=== PATIENT | female | born 1945 | race Caucasian/White ===

== ENCOUNTER → 2017-03-29 | Outpatient (REF) | payer MEDICARE, OTHER ==
[2017-03-29 12:34] LABS: MEAN CORPUSCULAR HEMOGLOBIN 31.7 pg (27.0-33.0); MEAN CORPUSCULAR HGB CONC 34.1 g/dl (32.0-36.5); MEAN CORPUSCULAR VOLUME 92.9 fl (80.0-96.0); RED CELL DISTRIBUTION WIDTH 13.6 % (11.5-14.5); WHITE BLOOD COUNT 5.7 K/mm3 (4.0-10.0)
[2017-03-29 12:45] LABS: ALBUMIN 3.9 GM/DL (3.2-5.2); ALKALINE PHOSPHATASE 58 U/L (45-117); ALT/SGPT 112 U/L (12-78); ANION GAP 11 MEQ/L (8-16); AST/SGOT 102 U/L (15-37); BILIRUBIN,TOTAL 0.5 MG/DL (0.2-1.0); BLOOD UREA NITROGEN 19 MG/DL (7-18); CALCIUM LEVEL 9.7 MG/DL (8.8-10.2); CARBON DIOXIDE LEVEL 26 MEQ/L (21-32); CHLORIDE LEVEL 98 MEQ/L (98-107); CHOLESTEROL LEVEL 150 MG/DL (<200); CREATININE FOR GFR 0.64 MG/DL (0.55-1.02); GLOMERULAR FILTRATION RATE > 60.0 (>39); GLUCOSE, FASTING 256 MG/DL (83-110); POTASSIUM SERUM 4.5 MEQ/L (3.5-5.1); SODIUM LEVEL 135 MEQ/L (136-145); TOTAL PROTEIN 6.9 GM/DL (6.4-8.2); TRIGLYCERIDES LEVEL 140 MG/DL (<150)
== END ==
LOC: M SFHCPLAZ 09:31
PROVIDERS: ATTEND Internal Medicine
DX: I10 Essential (primary) hypertension (principal); E11.40 Type 2 diabetes mellitus with diabetic neuropathy, unspecified; E78.00 Pure hypercholesterolemia, unspecified

== ENCOUNTER → 2017-06-06 | Outpatient (REF) | payer MEDICARE, OTHER | LOC: M SFHCPLAZ 14:45 | PROVIDERS: ATTEND Internal Medicine | DX: E11.40 Type 2 diabetes mellitus with diabetic neuropathy, unspecified (principal) | CPT/HCPCS: 83036; 99487; G0463 ==

== ENCOUNTER → 2017-08-03 | Outpatient (CLI) | payer MEDICARE, OTHER ==
--- NOTE | 2017-08-03 14:48 | REPMRS ---
Patient History The patient states she had a clinical breast exam in 08/07 Patient is nulliparous. No known family history of cancer. Digital Woman Screen Mammo: August 03, 2017 - Exam #: [id number] Bilateral CC and MLO view(s) were taken. Technologist: Mellisa Smith, Technologist Prior study comparison: August 03, 2016, digital woman screen mammo performed at [facility]. July 22, 2015, digital woman screen mammo performed at [facility]. August 05, 2014, digital woman screen mammo performed at [facility]. FINDINGS: There are scattered fibroglandular densities. There has been no change in the appearance of the mammogram from the prior studies. There is a mild amount of scattered fibroglandular density which is fairly symmetric. There is no interval development of dominant mass, architectural distortion, or clustered microcalcification suggestive of malignancy. ASSESSMENT: BI-RADS/ACR category 1 mammogram. Negative. Recommendation Routine screening mammogram in 1 year (for women over age 40). This mammogram was interpreted with the aid of an FDA-approved computer-aided dectection system. Electronically Signed By: Dl Perez MD 08/03/17 [id number]
== END ==
LOC: M WHC 12:52
PROVIDERS: ATTEND Nurse Practitioner Family
DX: Z01.411 Encounter for gynecological examination (general) (routine) with abnormal findings (principal); Z12.31 Encounter for screening mammogram for malignant neoplasm of breast; Z12.12 Encounter for screening for malignant neoplasm of rectum
CPT/HCPCS: 82270; G0101; G0202

== ENCOUNTER → 2017-08-10 | Outpatient (REF) | payer MEDICARE, OTHER ==
[2017-08-10 13:57] LABS: ALBUMIN 3.8 GM/DL (3.2-5.2); ALBUMIN/GLOBULIN RATIO 1.36 (1.00-1.93); ALKALINE PHOSPHATASE 52 U/L (45-117); ALT/SGPT 29 U/L (12-78); ANION GAP 10 MEQ/L (8-16); AST/SGOT 14 U/L (15-37); BILIRUBIN,TOTAL 0.4 MG/DL (0.2-1.0); BLOOD UREA NITROGEN 30 MG/DL (7-18); CALCIUM LEVEL 9.5 MG/DL (8.8-10.2); CARBON DIOXIDE LEVEL 27 MEQ/L (21-32); CHLORIDE LEVEL 104 MEQ/L (98-107); CHOLESTEROL LEVEL 118 MG/DL (<200); CREATININE FOR GFR 0.65 MG/DL (0.55-1.02); GLOMERULAR FILTRATION RATE > 60.0 (>39); GLUCOSE, FASTING 95 MG/DL (83-110); POTASSIUM SERUM 4.3 MEQ/L (3.5-5.1); SODIUM LEVEL 141 MEQ/L (136-145); TOTAL PROTEIN 6.6 GM/DL (6.4-8.2); TRIGLYCERIDES LEVEL 128 MG/DL (<150)
[2017-08-10 14:05] LABS: MEAN CORPUSCULAR HEMOGLOBIN 31.6 pg (27.0-33.0); MEAN CORPUSCULAR HGB CONC 34.7 g/dl (32.0-36.5); MEAN CORPUSCULAR VOLUME 91.1 fl (80.0-96.0); RED CELL DISTRIBUTION WIDTH 13.7 % (11.5-14.5); WHITE BLOOD COUNT 5.9 K/mm3 (4.0-10.0)
== END ==
LOC: M SFHCPLAZ 08:30
PROVIDERS: ATTEND Internal Medicine
DX: E78.00 Pure hypercholesterolemia, unspecified (principal); I10 Essential (primary) hypertension; E11.40 Type 2 diabetes mellitus with diabetic neuropathy, unspecified

== ENCOUNTER → 2018-03-27 | Outpatient (REF) | payer MEDICARE, OTHER ==
[2018-03-27 12:49] LABS: HEMOGLOBIN 14.3 g/dl (12.0-15.5); MEAN CORPUSCULAR HEMOGLOBIN 30.6 pg (27.0-33.0); MEAN CORPUSCULAR VOLUME 89.9 fl (80.0-96.0); PLATELET COUNT, AUTOMATED 181 10^3/uL (150-450); RED BLOOD COUNT 4.67 10^6/uL (4.00-5.40); RED CELL DISTRIBUTION WIDTH 13.8 % (11.5-14.5); WHITE BLOOD COUNT 6.2 10^3/uL (4.0-10.0)
[2018-03-27 13:11] LABS: ALBUMIN/GLOBULIN RATIO 1.18 (1.00-1.93); ALKALINE PHOSPHATASE 76 U/L (45-117); ALT/SGPT 29 U/L (12-78); ANION GAP 7 MEQ/L (8-16); AST/SGOT 18 U/L (7-37); BILIRUBIN,TOTAL 0.4 MG/DL (0.2-1.0); BLOOD UREA NITROGEN 24 MG/DL (7-18); CALCIUM LEVEL 9.6 MG/DL (8.8-10.2); CARBON DIOXIDE LEVEL 28 MEQ/L (21-32); CHLORIDE LEVEL 104 MEQ/L (98-107); CHOLESTEROL LEVEL 137 MG/DL (<200); CHOLESTEROL RISK RATIO 2.584 (<5); CREATININE FOR GFR 0.64 MG/DL (0.55-1.30); GLOMERULAR FILTRATION RATE > 60.0 (>39); GLUCOSE, FASTING 114 MG/DL (70-100); HDL CHOLESTEROL 53 MG/DL (>40); MAGNESIUM LEVEL 2.2 MG/DL (1.8-2.4); NON-HDL-C 84 MG/DL; POTASSIUM SERUM 4.4 MEQ/L (3.5-5.1); SODIUM LEVEL 139 MEQ/L (136-145); TOTAL PROTEIN 7.4 GM/DL (6.4-8.2); TRIGLYCERIDES LEVEL 120 MG/DL (<150)
[2018-03-27 13:15] LABS: CREATININE, URINE 48.1 MG/DL; MALB URINE SIEMENS 60.7 MG/L; MAU/CREAT RATIO 126.1 MCG/MG (0.0-30.0)
[2018-03-27 14:21] LABS: ESTIMATED AVERAGE GLUCOSE 120 MG/DL (60-110); HEMOGLOBIN A1c 5.8 %
== END ==
LOC: M SFHCPLAZ 08:12
DX: G62.9 Polyneuropathy, unspecified (principal); E11.40 Type 2 diabetes mellitus with diabetic neuropathy, unspecified; E78.00 Pure hypercholesterolemia, unspecified; I10 Essential (primary) hypertension
CPT/HCPCS: 83735

== ENCOUNTER 2018-07-03 12:28 | Inpatient (IN) | payer MEDICARE, OTHER ==
[2018-07-03] MEDS ORDERED: ONDANSETRON 4MG/2ML VIAL (J2405) As Ordered (12:57)
[2018-07-03] MEDS: ONDANSETRON 4MG/2ML VIAL (J2405) IV ×2 (13:00→21:42)
[2018-07-03 13:19] LABS: HEMATOCRIT 41.3 % (36.0-47.0); HEMOGLOBIN 14.3 g/dl (12.0-15.5); MEAN CORPUSCULAR HEMOGLOBIN 31.1 pg (27.0-33.0); MEAN CORPUSCULAR HGB CONC 34.6 g/dl (32.0-36.5); MEAN CORPUSCULAR VOLUME 89.8 fl (80.0-96.0); PLATELET COUNT, AUTOMATED 210 10^3/uL (150-450); RED CELL DISTRIBUTION WIDTH 14.4 % (11.5-14.5); WHITE BLOOD COUNT 9.3 10^3/uL (4.0-10.0)
[2018-07-03] MEDS: MORPHINE 4 MG/ML 1ML VIAL/SYRINGE (J2270) IV ×2 (13:37→14:33)
[2018-07-03] MEDS: NS 1,000 ML IV ×3 (13:38→21:34)
[2018-07-03 13:43] LABS: ANION GAP 11 MEQ/L (8-16); BLOOD UREA NITROGEN 25 MG/DL (7-18); CARBON DIOXIDE LEVEL 24 MEQ/L (21-32); CHLORIDE LEVEL 102 MEQ/L (98-107); CPK CREATINE PHOSPHOKINASE 37 U/L (26-192); CREATININE FOR GFR 0.61 MG/DL (0.55-1.30); GLOMERULAR FILTRATION RATE > 60.0 (>39); GLUCOSE, FASTING 227 MG/DL (70-100); POTASSIUM SERUM 4.4 MEQ/L (3.5-5.1); SODIUM LEVEL 137 MEQ/L (136-145); TROPONIN I < 0.02 NG/ML (< 0.10)
[2018-07-03] MEDS: METOCLOPRAMIDE INJ 10MG/2ML VIAL (J2765) IV (14:48)
[2018-07-03] MEDS ORDERED: MORPHINE 4 MG/ML 1ML VIAL/SYRINGE (J2270) IV (16:30)
[2018-07-03] MEDS ORDERED: GLUCOSE 4 GM CHEW TABLET PO (16:30)
[2018-07-03] MEDS ORDERED: DEXTROSE 50% 50 ML SYRINGE IV (16:30)
[2018-07-03] MEDS ORDERED: GLUCAGON FOR INJ 1 MG VIAL (J1610) SC (16:30)
[2018-07-03] MEDS: HumaLOG INSULIN (NovoLOG) PER UNIT SC ×2 (18:00→23:41)
[2018-07-03] MEDS ORDERED: PROPOFOL 200 MG/20 ML VIAL As Ordered (18:24)
[2018-07-03 18:25] LABS: BEDSIDE GLUCOSE 242 MG/DL (83-110)
[2018-07-03] MEDS ORDERED: MIDAZOLAM INJ 2 MG/2 ML VIAL (J2250) As Ordered (18:25)
[2018-07-03] MEDS ORDERED: KETAMINE HCL 200 MG/20 ML VIAL As Ordered (18:40)
[2018-07-03] MEDS ORDERED: ceFAZolin 2 GM/D5W 50 ML IV BAG (J0690 PER 500MG) As Ordered (18:41)
[2018-07-03] MEDS ORDERED: ePHEDrine SULFATE 25 MG/5 ML(5MG/ML) SYRINGE As Ordered (19:24)
[2018-07-03] MEDS ORDERED: PHENYLephrine HCL 500 MCG/5 ML (100MCG/ML) SYRINGE (J2370) As Ordered (19:24)
[2018-07-03] MEDS: BUPIVACAINE/EPIN 0.5% 30 ML VIAL As Ordered (20:11)
[2018-07-03 20:33] LABS: BEDSIDE GLUCOSE 234 MG/DL (83-110)
[2018-07-03] MEDS ORDERED: ONDANSETRON 4MG/2ML VIAL (J2405) IV (21:00)
[2018-07-03] MEDS: LR 1,000 ML IV (21:00)
[2018-07-03] MEDS ORDERED: fentaNYL 100 MCG/2 ML INJECTION (J3010) IV (21:00)
[2018-07-03] MEDS ORDERED: traMADol 50 MG TAB PO (21:15)
[2018-07-03] MEDS: ACETAMINOPHEN TAB 650MG DOSE (2X325MG) PO (21:42)
[2018-07-03] MEDS: traMADol 50 MG TAB PO (21:56)
[2018-07-03 23:34] LABS: BEDSIDE GLUCOSE 206 MG/DL (83-110)
[2018-07-04 05:00] LABS: BEDSIDE GLUCOSE 131 MG/DL (83-110)
[2018-07-04] MEDS: HumaLOG INSULIN (NovoLOG) PER UNIT SC ×2 (05:00→12:25)
[2018-07-04] MEDS: traMADol 50 MG TAB PO ×2 (05:01→11:06)
[2018-07-04 06:31] LABS: HEMATOCRIT 35.1 % (36.0-47.0); MEAN CORPUSCULAR HEMOGLOBIN 31.3 pg (27.0-33.0); MEAN CORPUSCULAR HGB CONC 34.2 g/dl (32.0-36.5); MEAN CORPUSCULAR VOLUME 91.6 fl (80.0-96.0); PLATELET COUNT, AUTOMATED 173 10^3/uL (150-450); RED BLOOD COUNT 3.83 10^6/uL (4.00-5.40); RED CELL DISTRIBUTION WIDTH 14.5 % (11.5-14.5); WHITE BLOOD COUNT 8.4 10^3/uL (4.0-10.0)
[2018-07-04 06:44] LABS: ANION GAP 8 MEQ/L (8-16); BLOOD UREA NITROGEN 23 MG/DL (7-18); CALCIUM LEVEL 8.3 MG/DL (8.8-10.2); CARBON DIOXIDE LEVEL 25 MEQ/L (21-32); CHLORIDE LEVEL 104 MEQ/L (98-107); GLOMERULAR FILTRATION RATE > 60.0 (>39); GLUCOSE, FASTING 133 MG/DL (70-100); POTASSIUM SERUM 4.2 MEQ/L (3.5-5.1); SODIUM LEVEL 137 MEQ/L (136-145)
[2018-07-04 08:40] LABS: CK-MB VALUE MASS < 1.0 NG/ML (<3.6); CPK CREATINE PHOSPHOKINASE 55 U/L (26-192); MB/CK RELATIVE INDEX 1.81 (< OR =4); TROPONIN I < 0.02 NG/ML (< 0.10)
[2018-07-04] MEDS: MOM 30ML SUSPENSION UDC PO (08:50)
[2018-07-04] MEDS: MIRALAX *UNIT DOSE* 17GM PACKET PO (08:50)
[2018-07-04] MEDS: SENOKOT S TAB PO (08:50)
[2018-07-04] MEDS ORDERED: ATENOLOL 50 MG TAB PO (09:00)
[2018-07-04] MEDS ORDERED: DEXTROSE 50% 50 ML SYRINGE IV (09:00)
[2018-07-04] MEDS ORDERED: GLUCAGON FOR INJ 1 MG VIAL (J1610) SC (09:00)
[2018-07-04] MEDS ORDERED: GLUCOSE 4 GM CHEW TABLET PO (09:00)
[2018-07-04 11:49] LABS: BEDSIDE GLUCOSE 229 MG/DL (83-110)
[2018-07-04] MEDS: ceFAZolin SOD 1 GM in D5W MINI-BAG PLUS 50 ML IV (14:26)
[2018-07-04] MEDS: ACETAMINOPHEN TAB 650MG DOSE (2X325MG) PO (16:41)
[2018-07-04] MEDS ORDERED: RIVAROXABAN 10 MG TAB (XARELTO) PO (18:00)
[2018-07-04] MEDS ORDERED: HumaLOG INSULIN (NovoLOG) PER UNIT SC (21:00)
[2018-07-05] MEDS ORDERED: ATENOLOL 50 MG TAB PO (09:00)
[2018-07-05] MEDS ORDERED: BENAZEPRIL 20 MG TAB PO (09:00)
[2018-07-05] MEDS ORDERED: ATORVASTATIN 10 MG TAB PO (21:00)
== END 2018-07-04 16:50 | DRG 482 ==
LOC: M ED 12:28 → M ED INP 15:38 → M MS5PR 17:10
PROC: 0QS706Z Reposition Left Upper Femur with Intramedullary Internal Fixation Device, Open Approach (ICD-10-PCS; principal; 2018-07-03 17:31)
DX: S72.142A Displaced intertrochanteric fracture of left femur, initial encounter for closed fracture (principal); W18.09XA Striking against other object with subsequent fall, initial encounter; Y92.012 Bathroom of single-family (private) house as the place of occurrence of the external cause; Y93.89 Activity, other specified; I10 Essential (primary) hypertension; I25.10 Atherosclerotic heart disease of native coronary artery without angina pectoris; E11.9 Type 2 diabetes mellitus without complications; K21.9 Gastro-esophageal reflux disease without esophagitis; G47.00 Insomnia, unspecified; E78.5 Hyperlipidemia, unspecified; Y99.8 Other external cause status; Z90.49 Acquired absence of other specified parts of digestive tract; Z79.82 Long term (current) use of aspirin; Z79.84 Long term (current) use of oral hypoglycemic drugs; Z79.899 Other long term (current) drug therapy; Z87.891 Personal history of nicotine dependence

== ENCOUNTER 2018-07-04 16:50 | Inpatient (IN) | payer MEDICARE, OTHER ==
[2018-07-04 17:19] LABS: BEDSIDE GLUCOSE 203 MG/DL (83-110)
[2018-07-04] MEDS ORDERED: PANTOPRAZOLE 40MG TAB (PROTONIX) PO (17:30)
[2018-07-04] MEDS ORDERED: BISACODYL 10 MG SUPP PR (17:45)
[2018-07-04] MEDS ORDERED: BISACODYL 5 MG TAB PO (17:45)
[2018-07-04] MEDS ORDERED: ONDANSETRON 4 MG ORAL DISINTEGRATING TAB (Q0162 PER 1MG) PO (17:45)
[2018-07-04] MEDS ORDERED: ONDANSETRON 4MG/2ML VIAL (J2405) IM (17:45)
[2018-07-04] MEDS ORDERED: GLUCAGON FOR INJ 1 MG VIAL (J1610) SC (17:45)
[2018-07-04] MEDS ORDERED: GLUCOSE 4 GM CHEW TABLET PO (17:45)
[2018-07-04] MEDS ORDERED: FLEET ENEMA PR (17:45)
[2018-07-04] MEDS ORDERED: DEXTROSE 50% 50 ML SYRINGE IV (17:45)
[2018-07-04] MEDS: traMADol 50 MG TAB PO (18:38)
[2018-07-04] MEDS: RIVAROXABAN 10 MG TAB (XARELTO) PO (18:54)
[2018-07-04 20:07] LABS: BEDSIDE GLUCOSE 319 MG/DL (83-110)
[2018-07-04] MEDS: VITAMIN D 1,000 INTERNATIONAL UNITS TABLET PO (21:24)
[2018-07-04] MEDS: SENOKOT S TAB PO (21:24)
[2018-07-04] MEDS: ATORVASTATIN 10 MG TAB PO (21:24)
[2018-07-04] MEDS: ACETAMINOPHEN 500 MG TAB PO (21:24)
[2018-07-04] MEDS: ceFAZolin SOD 1 GM in D5W MINI-BAG PLUS 50 ML IV (21:25)
[2018-07-04] MEDS: HumaLOG INSULIN (NovoLOG) PER UNIT SC (21:25)
[2018-07-05] MEDS: traMADol 50 MG TAB PO ×2 (00:53→21:11)
[2018-07-05] MEDS: ACETAMINOPHEN 500 MG TAB PO ×3 (06:21→21:09)
[2018-07-05 06:50] LABS: BASO # 0.1 10^3/uL (0.0-0.2); BASO % 0.7 % (0.0-1.0); EOS # 0.3 10^3/uL (0.0-0.50); EOS % 3.7 % (0.0-3.0); HEMOGLOBIN 10.8 g/dl (12.0-15.5); IMMATURE GRANULOCYTE % 0.5 % (0-3.0); LYMPH # 1.7 10^3/uL (1.5-4.5); LYMPH % 22.3 % (24.0-44.0); MEAN CORPUSCULAR HEMOGLOBIN 31.4 pg (27.0-33.0); MEAN CORPUSCULAR HGB CONC 34.8 g/dl (32.0-36.5); MEAN CORPUSCULAR VOLUME 90.1 fl (80.0-96.0); MONO # 0.6 10^3/uL (0.0-0.8); MONO % 8.4 % (0.0-5.0); NEUTROPHILS # 4.8 10^3/uL (1.8-7.7); NEUTROPHILS % 64.4 % (36.0-66.0); PLATELET COUNT, AUTOMATED 160 10^3/uL (150-450); RED BLOOD COUNT 3.44 10^6/uL (4.00-5.40); RED CELL DISTRIBUTION WIDTH 14.8 % (11.5-14.5); WHITE BLOOD COUNT 7.4 10^3/uL (4.0-10.0)
[2018-07-05 07:29] LABS: ALBUMIN 2.9 GM/DL (3.2-5.2); ALBUMIN/GLOBULIN RATIO 0.91 (1.00-1.93); ALKALINE PHOSPHATASE 46 U/L (45-117); ALT/SGPT 27 U/L (12-78); ANION GAP 8 MEQ/L (8-16); AST/SGOT 9 U/L (7-37); BILIRUBIN,TOTAL 0.7 MG/DL (0.2-1.0); BLOOD UREA NITROGEN 21 MG/DL (7-18); CALCIUM LEVEL 8.3 MG/DL (8.8-10.2); CARBON DIOXIDE LEVEL 26 MEQ/L (21-32); CHLORIDE LEVEL 102 MEQ/L (98-107); CREATININE FOR GFR 0.61 MG/DL (0.55-1.30); GLOMERULAR FILTRATION RATE > 60.0 (>39); GLUCOSE, FASTING 216 MG/DL (70-100); POTASSIUM SERUM 4.1 MEQ/L (3.5-5.1); SODIUM LEVEL 136 MEQ/L (136-145); TOTAL PROTEIN 6.1 GM/DL (6.4-8.2)
[2018-07-05] MEDS: MULTIVITAMINS/MINERALS THERAP 1 TAB PO (08:33)
[2018-07-05] MEDS: MAGNESIUM OXIDE 400 MG TAB (MAG-OX) PO (08:33)
[2018-07-05] MEDS: MIRALAX *UNIT DOSE* 17GM PACKET PO (08:33)
[2018-07-05] MEDS: MOM 30ML SUSPENSION UDC PO (08:33)
[2018-07-05] MEDS: ATENOLOL 50 MG TAB PO (08:33)
[2018-07-05] MEDS: BENAZEPRIL 20 MG TAB PO (08:33)
[2018-07-05] MEDS: HumaLOG INSULIN (NovoLOG) PER UNIT SC ×4 (08:34→21:11)
[2018-07-05 11:45] LABS: BEDSIDE GLUCOSE 247 MG/DL (83-110)
[2018-07-05 16:59] LABS: BEDSIDE GLUCOSE 177 MG/DL (83-110)
[2018-07-05] MEDS: metFORMIN XR 500MG TAB *GLUCOPHAGE XR PO (17:23)
[2018-07-05] MEDS: RIVAROXABAN 10 MG TAB (XARELTO) PO (17:23)
[2018-07-05 19:40] LABS: BEDSIDE GLUCOSE 296 MG/DL (83-110)
[2018-07-05] MEDS: SENOKOT S TAB PO (21:00)
[2018-07-05] MEDS: ATORVASTATIN 10 MG TAB PO (21:09)
[2018-07-05] MEDS: VITAMIN D 1,000 INTERNATIONAL UNITS TABLET PO (21:10)
[2018-07-06] MEDS: ACETAMINOPHEN 500 MG TAB PO ×3 (05:28→21:00)
[2018-07-06 05:40] LABS: BEDSIDE GLUCOSE 268 MG/DL (83-110)
[2018-07-06] MEDS: MAGNESIUM OXIDE 400 MG TAB (MAG-OX) PO (07:51)
[2018-07-06] MEDS: MULTIVITAMINS/MINERALS THERAP 1 TAB PO (07:52)
[2018-07-06] MEDS: ATENOLOL 50 MG TAB PO (07:52)
[2018-07-06] MEDS: BENAZEPRIL 20 MG TAB PO (07:53)
[2018-07-06] MEDS: HumaLOG INSULIN (NovoLOG) PER UNIT SC ×4 (07:53→21:01)
[2018-07-06] MEDS: MOM 30ML SUSPENSION UDC PO (07:53)
[2018-07-06] MEDS: MIRALAX *UNIT DOSE* 17GM PACKET PO (07:54)
[2018-07-06] MEDS ORDERED: MOM 30ML SUSPENSION UDC PO (10:00)
[2018-07-06 11:43] LABS: BEDSIDE GLUCOSE 326 MG/DL (83-110)
[2018-07-06 16:49] LABS: BEDSIDE GLUCOSE 144 MG/DL (83-110)
[2018-07-06] MEDS: metFORMIN XR 500MG TAB *GLUCOPHAGE XR PO (17:20)
[2018-07-06] MEDS: RIVAROXABAN 10 MG TAB (XARELTO) PO (17:20)
[2018-07-06 20:41] LABS: BEDSIDE GLUCOSE 281 MG/DL (83-110)
[2018-07-06] MEDS: SENOKOT S TAB PO (20:59)
[2018-07-06] MEDS: VITAMIN D 1,000 INTERNATIONAL UNITS TABLET PO (21:00)
[2018-07-06] MEDS: traMADol 50 MG TAB PO (23:18)
[2018-07-07] MEDS: ACETAMINOPHEN 500 MG TAB PO ×3 (06:01→22:19)
[2018-07-07 06:51] LABS: BEDSIDE GLUCOSE 238 MG/DL (83-110)
[2018-07-07] MEDS: HumaLOG INSULIN (NovoLOG) PER UNIT SC ×4 (08:28→21:00)
[2018-07-07] MEDS: MULTIVITAMINS/MINERALS THERAP 1 TAB PO (08:28)
[2018-07-07] MEDS: ATENOLOL 50 MG TAB PO (08:28)
[2018-07-07] MEDS: BENAZEPRIL 20 MG TAB PO (08:29)
[2018-07-07] MEDS: MAGNESIUM OXIDE 400 MG TAB (MAG-OX) PO (08:29)
[2018-07-07 11:55] LABS: BEDSIDE GLUCOSE 261 MG/DL (83-110)
[2018-07-07] MEDS: PANTOPRAZOLE 20 MG TAB PO (12:06)
[2018-07-07] MEDS: IBUPROFEN 600 MG TAB PO (12:08)
[2018-07-07] MEDS: MAALOX 30 ML SUSP *UDC PO (12:54)
[2018-07-07 16:58] LABS: BEDSIDE GLUCOSE 245 MG/DL (83-110)
[2018-07-07] MEDS: RIVAROXABAN 10 MG TAB (XARELTO) PO (17:03)
[2018-07-07] MEDS: metFORMIN XR 750 MG TAB PO (17:03)
[2018-07-07 20:13] LABS: BEDSIDE GLUCOSE 209 MG/DL (83-110)
[2018-07-07] MEDS: ATORVASTATIN 10 MG TAB PO (20:33)
[2018-07-07] MEDS: VITAMIN D 1,000 INTERNATIONAL UNITS TABLET PO (20:33)
[2018-07-07] MEDS: traMADol 50 MG TAB PO (20:35)
[2018-07-07] MEDS: SENOKOT S TAB PO (20:36)
[2018-07-08 06:24] LABS: BEDSIDE GLUCOSE 228 MG/DL (83-110)
[2018-07-08] MEDS: ACETAMINOPHEN 500 MG TAB PO ×3 (06:25→21:33)
[2018-07-08] MEDS: EXENATIDE 2 MG SQ (06:51)
[2018-07-08 06:56] LABS: HEMATOCRIT 27.5 % (36.0-47.0); HEMOGLOBIN 9.5 g/dl (12.0-15.5); MEAN CORPUSCULAR HEMOGLOBIN 31.4 pg (27.0-33.0); MEAN CORPUSCULAR HGB CONC 34.5 g/dl (32.0-36.5); MEAN CORPUSCULAR VOLUME 90.8 fl (80.0-96.0); PLATELET COUNT, AUTOMATED 252 10^3/uL (150-450); RED BLOOD COUNT 3.03 10^6/uL (4.00-5.40); RED CELL DISTRIBUTION WIDTH 14.9 % (11.5-14.5); WHITE BLOOD COUNT 8.4 10^3/uL (4.0-10.0)
[2018-07-08] MEDS: MAGNESIUM OXIDE 400 MG TAB (MAG-OX) PO (09:07)
[2018-07-08] MEDS: BENAZEPRIL 20 MG TAB PO (09:07)
[2018-07-08] MEDS: PANTOPRAZOLE 40MG TAB (PROTONIX) PO (09:07)
[2018-07-08] MEDS: ATENOLOL 50 MG TAB PO (09:07)
[2018-07-08] MEDS: MULTIVITAMINS/MINERALS THERAP 1 TAB PO (09:07)
[2018-07-08 11:30] LABS: BEDSIDE GLUCOSE 331 MG/DL (83-110)
[2018-07-08] MEDS: IBUPROFEN 600 MG TAB PO (12:02)
[2018-07-08 16:47] LABS: BEDSIDE GLUCOSE 227 MG/DL (83-110)
[2018-07-08] MEDS: metFORMIN XR 750 MG TAB PO (18:13)
[2018-07-08] MEDS: RIVAROXABAN 10 MG TAB (XARELTO) PO (18:13)
[2018-07-08] MEDS: NORTRIPTYLINE 25 MG CAP PO (20:02)
[2018-07-08] MEDS: VITAMIN D 1,000 INTERNATIONAL UNITS TABLET PO (20:02)
[2018-07-08] MEDS: traMADol 50 MG TAB PO (20:04)
[2018-07-08] MEDS: SENOKOT S TAB PO (20:04)
[2018-07-08 20:26] LABS: BEDSIDE GLUCOSE 299 MG/DL (83-110)
[2018-07-09] MEDS: ACETAMINOPHEN 500 MG TAB PO ×3 (06:19→23:00)
[2018-07-09 06:52] LABS: BEDSIDE GLUCOSE 270 MG/DL (83-110)
[2018-07-09] MEDS: MAGNESIUM OXIDE 400 MG TAB (MAG-OX) PO (08:29)
[2018-07-09] MEDS: PANTOPRAZOLE 40MG TAB (PROTONIX) PO (08:29)
[2018-07-09] MEDS: MULTIVITAMINS/MINERALS THERAP 1 TAB PO (08:29)
[2018-07-09] MEDS: ATENOLOL 50 MG TAB PO (08:30)
[2018-07-09] MEDS: BENAZEPRIL 20 MG TAB PO (08:30)
[2018-07-09 12:02] LABS: BEDSIDE GLUCOSE 237 MG/DL (83-110)
[2018-07-09] MEDS: IBUPROFEN 600 MG TAB PO (12:36)
[2018-07-09 16:54] LABS: BEDSIDE GLUCOSE 215 MG/DL (83-110)
[2018-07-09] MEDS: metFORMIN XR 750 MG TAB PO (17:50)
[2018-07-09] MEDS: RIVAROXABAN 10 MG TAB (XARELTO) PO (17:50)
[2018-07-09 19:50] LABS: BEDSIDE GLUCOSE 285 MG/DL (83-110)
[2018-07-09] MEDS: NORTRIPTYLINE 25 MG CAP PO (20:11)
[2018-07-09] MEDS: VITAMIN D 1,000 INTERNATIONAL UNITS TABLET PO (20:11)
[2018-07-09] MEDS: SENOKOT S TAB PO (20:12)
[2018-07-09] MEDS: traMADol 50 MG TAB PO (20:12)
[2018-07-10 06:16] LABS: BEDSIDE GLUCOSE 225 MG/DL (83-110)
[2018-07-10] MEDS: ACETAMINOPHEN 500 MG TAB PO ×3 (06:23→21:03)
[2018-07-10 07:03] LABS: HEMATOCRIT 24.7 % (36.0-47.0); HEMOGLOBIN 8.3 g/dl (12.0-15.5); MEAN CORPUSCULAR HEMOGLOBIN 31.1 pg (27.0-33.0); MEAN CORPUSCULAR HGB CONC 33.6 g/dl (32.0-36.5); MEAN CORPUSCULAR VOLUME 92.5 fl (80.0-96.0); PLATELET COUNT, AUTOMATED 207 10^3/uL (150-450); RED BLOOD COUNT 2.67 10^6/uL (4.00-5.40); RED CELL DISTRIBUTION WIDTH 14.9 % (11.5-14.5); WHITE BLOOD COUNT 5.8 10^3/uL (4.0-10.0)
[2018-07-10 07:28] LABS: ALBUMIN 2.6 GM/DL (3.2-5.2); ALBUMIN/GLOBULIN RATIO 0.84 (1.00-1.93); ALKALINE PHOSPHATASE 52 U/L (45-117); ALT/SGPT 20 U/L (12-78); ANION GAP 11 MEQ/L (8-16); AST/SGOT 12 U/L (7-37); BILIRUBIN,TOTAL 0.9 MG/DL (0.2-1.0); BLOOD UREA NITROGEN 26 MG/DL (7-18); CALCIUM LEVEL 8.6 MG/DL (8.8-10.2); CARBON DIOXIDE LEVEL 24 MEQ/L (21-32); CHLORIDE LEVEL 102 MEQ/L (98-107); CREATININE FOR GFR 0.62 MG/DL (0.55-1.30); GLOMERULAR FILTRATION RATE > 60.0 (>39); GLUCOSE, FASTING 222 MG/DL (70-100); POTASSIUM SERUM 4.7 MEQ/L (3.5-5.1); SODIUM LEVEL 137 MEQ/L (136-145); TOTAL PROTEIN 5.7 GM/DL (6.4-8.2)
[2018-07-10] MEDS: MULTIVITAMINS/MINERALS THERAP 1 TAB PO (07:51)
[2018-07-10] MEDS: PANTOPRAZOLE 40MG TAB (PROTONIX) PO (07:52)
[2018-07-10] MEDS: MAGNESIUM OXIDE 400 MG TAB (MAG-OX) PO (07:52)
[2018-07-10] MEDS: ATENOLOL 50 MG TAB PO (07:53)
[2018-07-10] MEDS: BENAZEPRIL 20 MG TAB PO (07:53)
[2018-07-10 11:50] LABS: BEDSIDE GLUCOSE 203 MG/DL (83-110)
[2018-07-10] MEDS: IBUPROFEN 600 MG TAB PO (12:00)
[2018-07-10] MEDS: glipiZIDE *XL* 2.5MG TABLET PO (15:20)
[2018-07-10 16:41] LABS: BEDSIDE GLUCOSE 248 MG/DL (83-110)
[2018-07-10] MEDS: metFORMIN XR 750 MG TAB PO (17:56)
[2018-07-10] MEDS: RIVAROXABAN 10 MG TAB (XARELTO) PO (17:56)
[2018-07-10 20:06] LABS: BEDSIDE GLUCOSE 262 MG/DL (83-110)
[2018-07-10] MEDS: SENOKOT S TAB PO (21:00)
[2018-07-10] MEDS: VITAMIN D 1,000 INTERNATIONAL UNITS TABLET PO (21:02)
[2018-07-10] MEDS: ATORVASTATIN 10 MG TAB PO (21:03)
[2018-07-11] MEDS: traMADol 50 MG TAB PO ×2 (00:20→21:03)
[2018-07-11] MEDS: ACETAMINOPHEN 500 MG TAB PO ×3 (06:23→21:03)
[2018-07-11 06:56] LABS: BEDSIDE GLUCOSE 243 MG/DL (83-110)
[2018-07-11] MEDS: MAGNESIUM OXIDE 400 MG TAB (MAG-OX) PO (09:01)
[2018-07-11] MEDS: ATENOLOL 50 MG TAB PO (09:01)
[2018-07-11] MEDS: MULTIVITAMINS/MINERALS THERAP 1 TAB PO (09:01)
[2018-07-11] MEDS: glipiZIDE *XL* 2.5MG TABLET PO (09:02)
[2018-07-11] MEDS: PANTOPRAZOLE 40MG TAB (PROTONIX) PO (09:02)
[2018-07-11] MEDS: BENAZEPRIL 20 MG TAB PO (09:02)
[2018-07-11 11:10] LABS: HEMATOCRIT 29.5 % (36.0-47.0); HEMOGLOBIN 9.9 g/dl (12.0-15.5); MEAN CORPUSCULAR HEMOGLOBIN 31.1 pg (27.0-33.0); MEAN CORPUSCULAR HGB CONC 33.6 g/dl (32.0-36.5); MEAN CORPUSCULAR VOLUME 92.8 fl (80.0-96.0); PLATELET COUNT, AUTOMATED 311 10^3/uL (150-450); RED BLOOD COUNT 3.18 10^6/uL (4.00-5.40); RED CELL DISTRIBUTION WIDTH 15.3 % (11.5-14.5); WHITE BLOOD COUNT 8.5 10^3/uL (4.0-10.0)
[2018-07-11] MEDS: IBUPROFEN 600 MG TAB PO (11:30)
[2018-07-11 11:50] LABS: BEDSIDE GLUCOSE 219 MG/DL (83-110)
[2018-07-11 16:49] LABS: BEDSIDE GLUCOSE 144 MG/DL (83-110)
[2018-07-11] MEDS: RIVAROXABAN 10 MG TAB (XARELTO) PO (17:38)
[2018-07-11] MEDS: metFORMIN XR 750 MG TAB PO (17:38)
[2018-07-11 19:52] LABS: BEDSIDE GLUCOSE 200 MG/DL (83-110)
[2018-07-11] MEDS: SENOKOT S TAB PO (21:00)
[2018-07-11] MEDS: VITAMIN D 1,000 INTERNATIONAL UNITS TABLET PO (21:02)
[2018-07-12] MEDS: ACETAMINOPHEN 500 MG TAB PO (06:20)
[2018-07-12 07:25] LABS: BASO % 0.5 % (0.0-1.0); EOS # 0.1 10^3/uL (0.0-0.50); EOS % 2.3 % (0.0-3.0); HEMATOCRIT 26.1 % (36.0-47.0); HEMOGLOBIN 8.7 g/dl (12.0-15.5); IMMATURE GRANULOCYTE % 1.5 % (0-3.0); LYMPH # 2.1 10^3/uL (1.5-4.5); LYMPH % 35.4 % (24.0-44.0); MEAN CORPUSCULAR HEMOGLOBIN 31.3 pg (27.0-33.0); MEAN CORPUSCULAR HGB CONC 33.3 g/dl (32.0-36.5); MEAN CORPUSCULAR VOLUME 93.9 fl (80.0-96.0); MONO # 0.5 10^3/uL (0.0-0.8); MONO % 8.8 % (0.0-5.0); NEUTROPHILS # 3.1 10^3/uL (1.8-7.7); NEUTROPHILS % 51.5 % (36.0-66.0); PLATELET COUNT, AUTOMATED 253 10^3/uL (150-450); RED BLOOD COUNT 2.78 10^6/uL (4.00-5.40); RED CELL DISTRIBUTION WIDTH 15.6 % (11.5-14.5)
[2018-07-12 08:00] LABS: ANION GAP 10 MEQ/L (8-16); BLOOD UREA NITROGEN 23 MG/DL (7-18); CARBON DIOXIDE LEVEL 26 MEQ/L (21-32); CHLORIDE LEVEL 101 MEQ/L (98-107); CREATININE FOR GFR 0.67 MG/DL (0.55-1.30); GLOMERULAR FILTRATION RATE > 60.0 (>39); GLUCOSE, FASTING 196 MG/DL (70-100); POTASSIUM SERUM 4.5 MEQ/L (3.5-5.1); SODIUM LEVEL 137 MEQ/L (136-145)
[2018-07-12] MEDS: glipiZIDE *XL* 2.5MG TABLET PO (08:27)
[2018-07-12] MEDS: BENAZEPRIL 20 MG TAB PO (08:27)
[2018-07-12] MEDS: MULTIVITAMINS/MINERALS THERAP 1 TAB PO (08:27)
[2018-07-12] MEDS: MAGNESIUM OXIDE 400 MG TAB (MAG-OX) PO (08:28)
[2018-07-12] MEDS: PANTOPRAZOLE 40MG TAB (PROTONIX) PO (08:28)
[2018-07-12] MEDS: ATENOLOL 50 MG TAB PO (08:28)
== END 2018-07-12 11:35 | disposition home or self-care (01) | DRG 560 ==
LOC: M PM&R 16:50
PROVIDERS: Physical Medicine & Rehabilitation
DX: S72.142D Displaced intertrochanteric fracture of left femur, subsequent encounter for closed fracture with routine healing (principal); D62 Acute posthemorrhagic anemia; I10 Essential (primary) hypertension; E11.42 Type 2 diabetes mellitus with diabetic polyneuropathy; I25.10 Atherosclerotic heart disease of native coronary artery without angina pectoris; G47.00 Insomnia, unspecified; K21.9 Gastro-esophageal reflux disease without esophagitis; E78.5 Hyperlipidemia, unspecified; Y92.012 Bathroom of single-family (private) house as the place of occurrence of the external cause; Y93.89 Activity, other specified; K59.00 Constipation, unspecified; E11.65 Type 2 diabetes mellitus with hyperglycemia; Z79.82 Long term (current) use of aspirin; Z79.84 Long term (current) use of oral hypoglycemic drugs; Z79.899 Other long term (current) drug therapy; W18.09XD Striking against other object with subsequent fall, subsequent encounter; Z90.49 Acquired absence of other specified parts of digestive tract; Z87.891 Personal history of nicotine dependence

== ENCOUNTER 2018-07-17 10:33 | Outpatient (RCR) | payer MEDICARE, OTHER | END 2018-07-21 | disposition home or self-care (01) | LOC: M PT 10:33 | DX: Z47.89 Encounter for other orthopedic aftercare (principal); S72.142A Displaced intertrochanteric fracture of left femur, initial encounter for closed fracture | CPT/HCPCS: 97110 ==

== ENCOUNTER 2018-07-27 11:18 | Outpatient (RCR) | payer MEDICARE, OTHER | END 2018-08-20 | LOC: M PT 11:18 | DX: Z51.89 Encounter for other specified aftercare (principal); S72.142D Displaced intertrochanteric fracture of left femur, subsequent encounter for closed fracture with routine healing; W18.30XD Fall on same level, unspecified, subsequent encounter; Y92.009 Unspecified place in unspecified non-institutional (private) residence as the place of occurrence of the external cause | CPT/HCPCS: 97110 ==

== ENCOUNTER → 2018-08-01 | Outpatient (REF) | payer MEDICARE, OTHER ==
[2018-08-01 10:59] LABS: HEMATOCRIT 38.5 % (36.0-47.0); HEMOGLOBIN 12.5 g/dl (12.0-15.5); MEAN CORPUSCULAR HEMOGLOBIN 30.4 pg (27.0-33.0); MEAN CORPUSCULAR HGB CONC 32.5 g/dl (32.0-36.5); MEAN CORPUSCULAR VOLUME 93.7 fl (80.0-96.0); PLATELET COUNT, AUTOMATED 294 10^3/uL (150-450); RED BLOOD COUNT 4.11 10^6/uL (4.00-5.40); RED CELL DISTRIBUTION WIDTH 15.1 % (11.5-14.5); WHITE BLOOD COUNT 8.7 10^3/uL (4.0-10.0)
[2018-08-01 11:32] LABS: MALB URINE SIEMENS 55.8 MG/L
[2018-08-01 11:46] LABS: ESTIMATED AVERAGE GLUCOSE 117 MG/DL (60-110); HEMOGLOBIN A1c 5.7 %
[2018-08-01 12:13] LABS: ALBUMIN 4.1 GM/DL (3.2-5.2); ALKALINE PHOSPHATASE 81 U/L (45-117); ALT/SGPT 24 U/L (12-78); ANION GAP 12 MEQ/L (8-16); AST/SGOT 19 U/L (7-37); BILIRUBIN,TOTAL 0.4 MG/DL (0.2-1.0); BLOOD UREA NITROGEN 20 MG/DL (7-18); CALCIUM LEVEL 9.8 MG/DL (8.8-10.2); CARBON DIOXIDE LEVEL 22 MEQ/L (21-32); CHLORIDE LEVEL 105 MEQ/L (98-107); CREATININE FOR GFR 0.51 MG/DL (0.55-1.30); GLOMERULAR FILTRATION RATE > 60.0 (>39); GLUCOSE, FASTING 115 MG/DL (70-100); MAGNESIUM LEVEL 2.2 MG/DL (1.8-2.4); POTASSIUM SERUM 4.5 MEQ/L (3.5-5.1); SODIUM LEVEL 139 MEQ/L (136-145); TOTAL PROTEIN 7.6 GM/DL (6.4-8.2)
[2018-08-01 15:56] LABS: ALBUMIN/GLOBULIN RATIO 1.17 (1.00-1.93)
[2018-08-01 20:34] LABS: CREATININE, URINE 62.3 MG/DL; MAU/CREAT RATIO 89.6 MCG/MG (0.0-30.0)
== END ==
LOC: M SFHCPLAZ 08:51
DX: D64.9 Anemia, unspecified (principal); I10 Essential (primary) hypertension; E11.40 Type 2 diabetes mellitus with diabetic neuropathy, unspecified
CPT/HCPCS: 83735

== ENCOUNTER → 2019-04-03 | Outpatient (REF) | payer MEDICARE, OTHER ==
[~2019-04-03] MED LIST: AMLO10TA5 PO; ASPI81TA85 PO; ATEN50TA2 PO; BENA20TA8 PO; BYDU1INJ SC; CENTCHW3 PO; D 50CAP PO; FISH1000 PO; GLIP2.5T6 PO; IBUP-1022 PO; LIPI10TA PO; MAGN400C2 PO; MAPA500T2 PO; METF750T PO; METF850T4 PO; NEXI40CA PO; PAME25CA PO; SENN1TAB40 PO; TRAM50TA2 PO; XARE10TA PO
[2019-04-03 10:40] LABS: HEMATOCRIT 44.8 % (36.0-47.0); MEAN CORPUSCULAR HEMOGLOBIN 31.1 pg (27.0-33.0); MEAN CORPUSCULAR HGB CONC 33.5 g/dl (32.0-36.5); MEAN CORPUSCULAR VOLUME 92.9 fl (80.0-96.0); PLATELET COUNT, AUTOMATED 172 10^3/uL (150-450); RED BLOOD COUNT 4.82 10^6/uL (4.00-5.40); WHITE BLOOD COUNT 5.4 10^3/uL (4.0-10.0)
[2019-04-03 10:43] LABS: ALBUMIN 4.1 GM/DL (3.2-5.2); ALT/SGPT 64 U/L (12-78); BILIRUBIN,TOTAL 0.4 MG/DL (0.2-1.0); BLOOD UREA NITROGEN 24 MG/DL (7-18); CARBON DIOXIDE LEVEL 22 MEQ/L (21-32); CHLORIDE LEVEL 101 MEQ/L (98-107); CHOLESTEROL LEVEL 166 MG/DL (<200); CHOLESTEROL RISK RATIO 3.688 (<5); CREATININE FOR GFR 0.65 MG/DL (0.55-1.30); GLOMERULAR FILTRATION RATE > 60.0 (>39); GLUCOSE, FASTING 236 MG/DL (70-100); HDL CHOLESTEROL 45 MG/DL (>40); LDL CHOLESTEROL 79 MG/DL (<100); MAGNESIUM LEVEL 1.7 MG/DL (1.8-2.4); NON-HDL-C 121 MG/DL; POTASSIUM SERUM 4.3 MEQ/L (3.5-5.1); SODIUM LEVEL 135 MEQ/L (136-145); TOTAL PROTEIN 7.1 GM/DL (6.4-8.2); TRIGLYCERIDES LEVEL 211 MG/DL (<150)
[2019-04-03 10:50] LABS: CREATININE, URINE 39.9 MG/DL; MALB URINE SIEMENS 90.6 MG/L
[2019-04-03 12:51] LABS: HEMOGLOBIN A1c 8.4 %
== END ==
LOC: M SFHCPLAZ 07:44
PROVIDERS: ATTEND Internal Medicine
DX: Z79.899 Other long term (current) drug therapy (principal); I10 Essential (primary) hypertension; E11.40 Type 2 diabetes mellitus with diabetic neuropathy, unspecified; E78.00 Pure hypercholesterolemia, unspecified

== ENCOUNTER → 2019-07-26 | Outpatient (REF) | payer MEDICARE, OTHER ==
[~2019-07-26] MED LIST changes: -METF750T PO; +METF750T36 PO
[2019-07-26 11:00] LABS: HEMOGLOBIN A1c 8.6 %
[2019-07-26 11:14] LABS: MAU/CREAT RATIO 332.7 MCG/MG (0.0-30.0)
[2019-07-26 11:17] LABS: ALBUMIN 4.2 GM/DL (3.2-5.2); ALT/SGPT 66 U/L (12-78); BILIRUBIN,TOTAL 0.4 MG/DL (0.2-1.0); BLOOD UREA NITROGEN 21 MG/DL (7-18); CALCIUM LEVEL 10.5 MG/DL (8.8-10.2); CARBON DIOXIDE LEVEL 24 MEQ/L (21-32); CHLORIDE LEVEL 98 MEQ/L (98-107); CHOLESTEROL LEVEL 158 MG/DL (<200); CHOLESTEROL RISK RATIO 3.038 (<5); CREATININE FOR GFR 0.62 MG/DL (0.55-1.30); FOLATE > 24.0 NG/ML; GLOMERULAR FILTRATION RATE > 60.0 (>39); GLUCOSE, FASTING 231 MG/DL (70-100); HDL CHOLESTEROL 52 MG/DL (>40); LDL CHOLESTEROL 70 MG/DL (<100); MAGNESIUM LEVEL 1.7 MG/DL (1.8-2.4); NON-HDL-C 106 MG/DL; POTASSIUM SERUM 4.4 MEQ/L (3.5-5.1); SODIUM LEVEL 135 MEQ/L (136-145); TOTAL PROTEIN 7.5 GM/DL (6.4-8.2); TRIGLYCERIDES LEVEL 180 MG/DL (<150); VITAMIN B12 LEVEL 440 PG/ML
== END ==
LOC: M SFHCPLAZ 08:22
PROVIDERS: ATTEND Internal Medicine
DX: I10 Essential (primary) hypertension (principal); E11.40 Type 2 diabetes mellitus with diabetic neuropathy, unspecified; E78.00 Pure hypercholesterolemia, unspecified; G62.9 Polyneuropathy, unspecified

== ENCOUNTER → 2020-03-25 | Outpatient (REF) | payer MEDICARE, OTHER ==
[~2020-03-25] MED LIST changes: +SENN-53 PO; -SENN1TAB40 PO
[2020-03-25 11:02] LABS: HEMATOCRIT 48.8 % (36.0-47.0); HEMOGLOBIN 16.1 g/dl (12.0-15.5); MEAN CORPUSCULAR HEMOGLOBIN 30.3 pg (27.0-33.0); MEAN CORPUSCULAR VOLUME 91.9 fl (80.0-96.0); PLATELET COUNT, AUTOMATED 177 10^3/uL (150-450); RED BLOOD COUNT 5.31 10^6/uL (4.00-5.40); WHITE BLOOD COUNT 6.6 10^3/uL (4.0-10.0)
[2020-03-25 11:13] LABS: ALBUMIN 3.9 GM/DL (3.2-5.2); ALT/SGPT 62 U/L (12-78); BILIRUBIN,TOTAL 0.4 MG/DL (0.2-1.0); BLOOD UREA NITROGEN 20 MG/DL (7-18); CALCIUM LEVEL 9.6 MG/DL (8.8-10.2); CARBON DIOXIDE LEVEL 25 MEQ/L (21-32); CHLORIDE LEVEL 102 MEQ/L (98-107); CHOLESTEROL LEVEL 155 MG/DL (<200); GLOMERULAR FILTRATION RATE > 60.0 (>39); GLUCOSE, FASTING 288 MG/DL (70-100); HDL CHOLESTEROL 52 MG/DL (>40); LDL CHOLESTEROL 69 MG/DL (<100); MAGNESIUM LEVEL 1.7 MG/DL (1.8-2.4); NON-HDL-C 103 MG/DL; POTASSIUM SERUM 4.6 MEQ/L (3.5-5.1); SODIUM LEVEL 135 MEQ/L (136-145); TOTAL PROTEIN 7.3 GM/DL (6.4-8.2); TRIGLYCERIDES LEVEL 172 MG/DL (<150)
[2020-03-25 11:16] LABS: TOTAL 25(OH) VITAMIN D 30.6 NG/ML (30.0-100.0)
[2020-03-25 11:48] LABS: CREATININE, URINE 42.6 MG/DL; MAU/CREAT RATIO 286.3 MCG/MG (0.0-30.0)
== END ==
LOC: M PLALAB 08:40
PROVIDERS: ATTEND Internal Medicine
DX: Z79.899 Other long term (current) drug therapy (principal); I10 Essential (primary) hypertension; E11.40 Type 2 diabetes mellitus with diabetic neuropathy, unspecified; E78.00 Pure hypercholesterolemia, unspecified; R79.89 Other specified abnormal findings of blood chemistry; Z87.81 Personal history of (healed) traumatic fracture

== ENCOUNTER → 2020-04-10 | Outpatient (CLI) | payer MEDICARE, OTHER ==
--- NOTE | 2020-04-10 13:59 | REPMRS ---
Patient History The patient states she has not had a clinical breast exam in over a year. Patient is postmenopausal and is nulliparous. Family history of multiple myeloma at age 68 in father, multiple myeloma at age 75 in paternal grandmother. Digital Woman Screen Mammo: April 10, 2020 - Exam #: [id number] Bilateral CC and MLO view(s) were taken. Technologist: Tere Reynolds, Technologist Prior study comparison: August 03, 2017, digital woman screen mammo performed at [facility]. August 03, 2016, digital woman screen mammo performed at [facility]. July 22, 2015, digital woman screen mammo performed at [facility]. FINDINGS: There are scattered fibroglandular densities. The Volpara volumetric breast density category is:B. There has been no change in the appearance of the mammogram from the prior studies. There is a mild amount of scattered fibroglandular density which is fairly symmetric. There is no interval development of dominant mass, architectural distortion, or grouped microcalcification suggestive of malignancy. 3-D tomosynthesis shows no additional findings. Assessment: BI-RADS/ACR category 1 mammogram. Negative Mammogram. Recommendation Routine screening mammogram of both breasts in 1 year (for women over age 40). This patient's Lifetime Breast Cancer Risk is estimated at 3.7 %. This mammogram was interpreted with the aid of an FDA-approved computer-aided dectection system. Electronically Signed By: Dl Perez MD 04/10/20 [id number]
--- NOTE | 2020-04-18 15:35 | DEXA ---
AP SPINE L1 - L4 1.088 -0.9 0.9 LT FEMUR TOTAL LT NECK RT FEMUR TOTAL 0.847 -1.3 0.5 RT NECK 0.840 -1.4 0.5 TOTAL BODY TOTAL OTHER COMMENTS: Normal bone densitometry of the spine. There is low bone density of the right hip. The decreased density of the spine does represent a significant change. The decreased density of the right hip does represent significant change. The density of the spine is increased 5.9% since the initial exam on 12/21/2001. The decreased 2.8% since the most recent exam on 06/21/2008. The density of the right hip has decreased 8.1% since the initial exam on 12/21/2001. The density of the right hip has decreased 12.4% since most recent exam on 06/21/2002. FOLLOW-UP: Recommendation for the next bone density exam: 2 years. [place]
== END ==
LOC: M WHC 12:59
PROVIDERS: ATTEND Internal Medicine
DX: Z12.31 Encounter for screening mammogram for malignant neoplasm of breast (principal); Z87.81 Personal history of (healed) traumatic fracture

== ENCOUNTER → 2020-04-23 | Outpatient (CLI) | payer MEDICARE, OTHER | LOC: M LABSMTC 10:00 | PROVIDERS: ATTEND Family Medicine | DX: Z11.59 Encounter for screening for other viral diseases (principal) | CPT/HCPCS: C9803; U0003 ==

== ENCOUNTER → 2020-07-31 | Outpatient (CLI) | payer MEDICARE, OTHER ==
[~2020-07-31] MED LIST changes: -AMLO10TA5 PO; +AMLO1TAB25 PO; -ASPI81TA85 PO; +ASPI81TA86 PO
[2020-07-31 12:40] LABS: ALBUMIN 3.7 GM/DL (3.2-5.2); ALT/SGPT 43 U/L (12-78); BILIRUBIN,TOTAL 0.3 MG/DL (0.2-1.0); BLOOD UREA NITROGEN 26 MG/DL (7-18); CALCIUM LEVEL 9.8 MG/DL (8.8-10.2); CARBON DIOXIDE LEVEL 25 MEQ/L (21-32); CHLORIDE LEVEL 103 MEQ/L (98-107); CHOLESTEROL LEVEL 165 MG/DL (<200); CHOLESTEROL RISK RATIO 3.367 (<5); GLOMERULAR FILTRATION RATE > 60.0 (>39); GLUCOSE, FASTING 333 MG/DL (70-100); HDL CHOLESTEROL 49 MG/DL (>40); LDL CHOLESTEROL 79 MG/DL (<100); MAGNESIUM LEVEL 1.7 MG/DL (1.8-2.4); NON-HDL-C 116 MG/DL; POTASSIUM SERUM 4.2 MEQ/L (3.5-5.1); SODIUM LEVEL 137 MEQ/L (136-145); TOTAL PROTEIN 6.9 GM/DL (6.4-8.2); TRIGLYCERIDES LEVEL 185 MG/DL (<150)
[2020-07-31 12:46] LABS: CREATININE, URINE 27.1 MG/DL; MAU/CREAT RATIO 313.6 MCG/MG (0.0-30.0)
== END ==
LOC: M PLALAB 08:32
PROVIDERS: ATTEND Internal Medicine
DX: E11.40 Type 2 diabetes mellitus with diabetic neuropathy, unspecified (principal); I10 Essential (primary) hypertension; E78.00 Pure hypercholesterolemia, unspecified

== ENCOUNTER → 2021-04-06 | Outpatient (REF) | payer MEDICARE, OTHER ==
[2021-04-06 10:12] LABS: BASO # 0.1 10^3/uL (0.0-0.2); BASO % 0.9 % (0.0-1.0); EOS # 0.2 10^3/uL (0.0-0.5); EOS % 3.4 % (0.0-3.0); HEMOGLOBIN 15.8 g/dl (12.0-15.5); LYMPH # 1.9 10^3/uL (1.5-5.0); LYMPH % 29.9 % (24.0-44.0); MEAN CORPUSCULAR HGB CONC 33.6 g/dl (32.0-36.5); MEAN CORPUSCULAR VOLUME 92.2 fl (80.0-96.0); MONO # 0.5 10^3/uL (0.0-0.8); NEUTROPHILS # 3.7 10^3/uL (1.5-8.5); NEUTROPHILS % 58.2 % (36.0-66.0); PLATELET COUNT, AUTOMATED 184 10^3/uL (150-450); WHITE BLOOD COUNT 6.4 10^3/uL (4.0-10.0)
[2021-04-06 10:29] LABS: HEMOGLOBIN A1c 7.9 %
[2021-04-06 10:35] LABS: ALBUMIN 3.7 GM/DL (3.2-5.2); ALT/SGPT 40 U/L (12-78); BILIRUBIN,TOTAL 0.5 MG/DL (0.2-1.0); BLOOD UREA NITROGEN 23 MG/DL (7-18); CALCIUM LEVEL 9.1 MG/DL (8.8-10.2); CARBON DIOXIDE LEVEL 24 MEQ/L (21-32); CHLORIDE LEVEL 103 MEQ/L (98-107); CHOLESTEROL LEVEL 165 MG/DL (<200); CREATININE FOR GFR 0.64 MG/DL (0.55-1.30); GLOMERULAR FILTRATION RATE > 60.0 (>39); GLUCOSE, FASTING 263 MG/DL (70-100); HDL CHOLESTEROL 50 MG/DL (>40); LDL CHOLESTEROL 70 MG/DL (<100); NON-HDL-C 115 MG/DL; POTASSIUM SERUM 4.4 MEQ/L (3.5-5.1); SODIUM LEVEL 135 MEQ/L (136-145); TOTAL PROTEIN 6.9 GM/DL (6.4-8.2); TRIGLYCERIDES LEVEL 225 MG/DL (<150)
[2021-04-06 10:54] LABS: CREATININE, URINE 42.1 MG/DL; MAU/CREAT RATIO 261.2 MCG/MG (0.0-30.0)
== END ==
LOC: M PLALAB 08:29
PROVIDERS: ATTEND Internal Medicine
DX: G62.9 Polyneuropathy, unspecified (principal); I10 Essential (primary) hypertension; E11.40 Type 2 diabetes mellitus with diabetic neuropathy, unspecified; E78.00 Pure hypercholesterolemia, unspecified

== ENCOUNTER → 2021-08-05 | Outpatient (CLI) | payer MEDICARE, OTHER ==
[2021-08-05 11:42] LABS: ALBUMIN 3.6 GM/DL (3.2-5.2); ALT/SGPT 49 U/L (12-78); BILIRUBIN,TOTAL 0.5 MG/DL (0.2-1.0); BLOOD UREA NITROGEN 18 MG/DL (7-18); CALCIUM LEVEL 9.3 MG/DL (8.8-10.2); CARBON DIOXIDE LEVEL 26 MEQ/L (21-32); CHLORIDE LEVEL 103 MEQ/L (98-107); CHOLESTEROL LEVEL 142 MG/DL (<200); CHOLESTEROL RISK RATIO 3.302 (<5); CREATININE, URINE 36.8 MG/DL; GLOMERULAR FILTRATION RATE > 60.0 (>39); GLUCOSE, FASTING 277 MG/DL (70-100); HDL CHOLESTEROL 43 MG/DL (>40); LDL CHOLESTEROL 53 MG/DL (<100); MAGNESIUM LEVEL 1.7 MG/DL (1.8-2.4); MAU/CREAT RATIO 282.6 MCG/MG (0.0-30.0); NON-HDL-C 99 MG/DL; POTASSIUM SERUM 4.5 MEQ/L (3.5-5.1); SODIUM LEVEL 136 MEQ/L (136-145); TOTAL PROTEIN 6.6 GM/DL (6.4-8.2); TRIGLYCERIDES LEVEL 228 MG/DL (<150)
[2021-08-05 11:57] LABS: HEMOGLOBIN A1c 8.4 %
== END ==
LOC: M PLALAB 08:19
PROVIDERS: ATTEND Internal Medicine
DX: I10 Essential (primary) hypertension (principal)

== ENCOUNTER → 2022-04-06 | Outpatient (CLI) | payer MEDICARE, OTHER ==
[~2022-04-06] MED LIST changes: +BENA-8 PO; -BENA20TA8 PO
[2022-04-06 10:51] LABS: HEMOGLOBIN A1c 6.4 %
[2022-04-06 10:56] LABS: ALT/SGPT 22 U/L (12-78); BASO # 0.1 10^3/uL (0.0-0.2); BASO % 0.7 % (0.0-1.0); BILIRUBIN,TOTAL 0.4 MG/DL (0.2-1.0); BLOOD UREA NITROGEN 21 MG/DL (7-18); CALCIUM LEVEL 10.4 MG/DL (8.8-10.2); CARBON DIOXIDE LEVEL 25 MEQ/L (21-32); CHLORIDE LEVEL 106 MEQ/L (98-107); CHOLESTEROL LEVEL 181 MG/DL (<200); CHOLESTEROL RISK RATIO 3.232 (<5); CREATININE FOR GFR 0.67 MG/DL (0.55-1.30); EOS # 0.1 10^3/uL (0.0-0.5); EOS % 1.9 % (0.0-3.0); GLOMERULAR FILTRATION RATE > 60.0 (>39); GLUCOSE, FASTING 152 MG/DL (70-100); HDL CHOLESTEROL 56 MG/DL (>40); HEMOGLOBIN 15.2 g/dl (12.0-15.5); LDL CHOLESTEROL 105 MG/DL (<100); LYMPH % 28.5 % (24.0-44.0); MAGNESIUM LEVEL 1.8 MG/DL (1.8-2.4); MEAN CORPUSCULAR HEMOGLOBIN 31.1 pg (27.0-33.0); MEAN CORPUSCULAR HGB CONC 33.8 g/dl (32.0-36.5); MEAN CORPUSCULAR VOLUME 92.2 fl (80.0-96.0); MONO # 0.5 10^3/uL (0.0-0.8); MONO % 7.1 % (2.0-8.0); NEUTROPHILS # 4.3 10^3/uL (1.5-8.5); NEUTROPHILS % 61.5 % (36.0-66.0); NON-HDL-C 125 MG/DL; PLATELET COUNT, AUTOMATED 206 10^3/uL (150-450); POTASSIUM SERUM 4.5 MEQ/L (3.5-5.1); RED BLOOD COUNT 4.88 10^6/uL (4.00-5.40); SODIUM LEVEL 140 MEQ/L (136-145); TOTAL PROTEIN 7.4 GM/DL (6.4-8.2); TRIGLYCERIDES LEVEL 101 MG/DL (<150)
[2022-04-06 10:57] LABS: CREATININE, URINE 75.1 MG/DL; MAU/CREAT RATIO 311.5 MCG/MG (0.0-30.0)
== END ==
LOC: M PLALAB 08:33
PROVIDERS: ATTEND Internal Medicine
DX: E78.00 Pure hypercholesterolemia, unspecified (principal); E11.40 Type 2 diabetes mellitus with diabetic neuropathy, unspecified; I10 Essential (primary) hypertension; R79.89 Other specified abnormal findings of blood chemistry; G62.9 Polyneuropathy, unspecified

== ENCOUNTER 2022-05-14 09:48 | Outpatient (RCR) | payer MEDICARE, OTHER | END 2022-05-20 | LOC: M PT 09:48 | PROVIDERS: ATTEND Internal Medicine | DX: M25.551 Pain in right hip (principal) ==

== ENCOUNTER → 2022-05-17 | Outpatient (CLI) | payer MEDICARE, OTHER | LOC: M WHC 13:41 | PROVIDERS: ATTEND Internal Medicine | DX: Z12.31 Encounter for screening mammogram for malignant neoplasm of breast (principal) ==

== ENCOUNTER → 2022-06-08 | Outpatient (CLI) | payer MEDICARE, OTHER | LOC: M WHC 12:39 | PROVIDERS: ATTEND Internal Medicine | DX: R92.8 Other abnormal and inconclusive findings on diagnostic imaging of breast (principal) | CPT/HCPCS: 76642; 77065; G0279 ==

== ENCOUNTER → 2022-06-09 | Outpatient (CLI) | payer MEDICARE, OTHER ==
[2022-06-09 17:29] LABS: FOLATE > 24.0 NG/ML; VITAMIN B12 LEVEL 220 PG/ML
== END ==
LOC: M PLALAB 11:17
PROVIDERS: ATTEND Psychiatry & Neurology Neurology
DX: R26.9 Unspecified abnormalities of gait and mobility (principal); R41.3 Other amnesia; E03.9 Hypothyroidism, unspecified; E53.8 Deficiency of other specified B group vitamins

== ENCOUNTER → 2022-06-29 | Outpatient (CLI) | payer MEDICARE, OTHER | LOC: M WUC 11:09 | PROVIDERS: ATTEND Student in an Organized Health Care Education/Training Program | DX: M25.562 Pain in left knee (principal); M17.12 Unilateral primary osteoarthritis, left knee ==

== ENCOUNTER → 2022-07-21 | Outpatient (CLI) | payer MEDICARE, OTHER ==
[2022-07-21 16:05] LABS: HEMATOCRIT 42.5 % (36.0-47.0); HEMOGLOBIN 14.5 g/dl (12.0-15.5); MEAN CORPUSCULAR HEMOGLOBIN 31.5 pg (27.0-33.0); MEAN CORPUSCULAR HGB CONC 34.1 g/dl (32.0-36.5); MEAN CORPUSCULAR VOLUME 92.4 fl (80.0-96.0); PLATELET COUNT, AUTOMATED 215 10^3/uL (150-450); WHITE BLOOD COUNT 8.5 10^3/uL (4.0-10.0)
[2022-07-21 16:37] LABS: HEMOGLOBIN A1c 6.5 %
[2022-07-21 16:53] LABS: ALT/SGPT 18 U/L (12-78); BILIRUBIN,TOTAL 0.4 MG/DL (0.2-1.0); BLOOD UREA NITROGEN 18 MG/DL (7-18); CALCIUM LEVEL 10.5 MG/DL (8.8-10.2); CARBON DIOXIDE LEVEL 26 MEQ/L (21-32); CHLORIDE LEVEL 101 MEQ/L (98-107); CHOLESTEROL LEVEL 164 MG/DL (<200); CHOLESTEROL RISK RATIO 2.733 (<5); CREATININE FOR GFR 0.58 MG/DL (0.55-1.30); FREE T4 0.91 NG/DL (0.76-1.46); GLOMERULAR FILTRATION RATE > 60.0 (>39); GLUCOSE, FASTING 115 MG/DL (70-100); HDL CHOLESTEROL 60 MG/DL (>40); LDL CHOLESTEROL 68 MG/DL (<100); NON-HDL-C 104 MG/DL; POTASSIUM SERUM 4.3 MEQ/L (3.5-5.1); SODIUM LEVEL 134 MEQ/L (136-145); TOTAL PROTEIN 7.3 GM/DL (6.4-8.2); TRIGLYCERIDES LEVEL 182 MG/DL (<150)
[2022-07-21 17:09] LABS: TOTAL 25(OH) VITAMIN D 20.5 NG/ML (30.0-100.0); VITAMIN B12 LEVEL 1466 PG/ML (247-911)
== END ==
LOC: M PLALAB 12:05
PROVIDERS: ATTEND Internal Medicine Hematology
DX: E11.40 Type 2 diabetes mellitus with diabetic neuropathy, unspecified (principal); Z79.899 Other long term (current) drug therapy